=== PATIENT | male | born 1995 | race Caucasian/White ===

== ENCOUNTER → 2023-05-15 07:51 | Outpatient (POV) | payer SELFPAY | PROVIDERS: Visit Provider Dermatology | DX: Z00.00 Encounter for general adult medical examination without abnormal findings (principal) ==

== ENCOUNTER 2025-08-04 08:27 | Outpatient (CLI) | payer BC, SELFPAY ==
--- NOTE | 2025-08-04 08:31 | XR_ITS ---
FINAL REPORT CLINICAL HISTORY: Evaluation of Right Foot Pain..no injury FINDINGS: RIGHT FOOT 3 views of the right foot were obtained. There is no acute fracture or dislocation. There is mild degenerative change of the first MTP joint. Visualized joint spaces are normally aligned. Soft tissues are unremarkable. IMPRESSION: No acute bony abnormality. Reviewed, Interpreted and Dictated by Cara Martinez MD Transcribed by Kellie Gupta Authenticated and . [facility]
--- OUTSIDE RECORDS SUMMARY | 2025-08-04 08:52 | XMS_ITS | Data Portability ---
Author Organization [facility] - [facility] Address [address] [place] [id number] Assessment Encounter Date Assessment Date Assessment LastModified by Organization Details LastModified Time 11/27/2023 11/27/2023 Diagnosis acute bacterial sinusitis and bronchitis Will treat as below. No signs of preseptal or orbital cellulitis, meningismus, or neurologic changes concerning for intracranial process. Instructed family to monitor patient closely and call office for any of these symptoms. Supportive care reviewed: raising HOB, humidifier use, saline nasal spray, rest, encourage PO fluids and monitor hydration status, infection control measures. Recommended acetaminophen/i buprofen PRN pain, fever; reviewed appropriate doses. Follow-up with worsening symptoms or concerns Patient was advised on risk and benefits of the use of oral steriods. Patient is wanting steriods to help with symptoms at this time. Patient was advised that if symptoms worsen at all to seek care [id number] Not available 11/27/2023 08:46:01 Plan of Treatment Reminders Order Date Submit Date Provider Last Modified By Organization Details Last Modified Time Details Appointments None recorded. Lab None recorded. Referral None recorded. Procedures None recorded. Surgeries None recorded. Imaging None recorded. Medication Orders doxycycline hyclate 100 mg capsule 2023 024 [facility], [address], [place], [address], 08:46:09 prednisone 20 mg tablet 2023 024 [facility], [address], [place], [address], 4 08:46:08 Patient TargetsNo targets recorded. Patient InstructionsNo instructions recorded. Reason for Referral None Reported. Medical Equipment None Reported. Allergies Allergen ID Allergen Name Allergen Category Reaction Reaction Severity Criticality Documentation Date Start Date Code Code System Note Provider Name and Address Organization Details Recorded Time [id number] amoxicill in medicatio n Not available Not available Not available 11/27/2023 723 [facility] GEORGES LOPEZS [facility] & [place] 4 08:36:16 Medications Name Sig Start Date Stop Date Status Note LastModified by Organization Details LastModified Time doxycycline hyclate 100 mg capsule TAKE 1 CAPSULE BY MOUTH TWICE DAILY FOR 10 DAYS active Not Available Not Available No t Available ketoconazole 2 % shampoo 1 APPLICATION TOPICALLY EVERY DAY active Not Available Not Available No t Available albuterol sulfate 2.5 mg/3 mL (0.083 %) solution for nebulization USE 1 VIAL IN NEBULIZER THREE TIMES DAILY active Not Available Not Available No t Available prednisone 20 mg tablet TAKE 1 TABLET BY MOUTH EVERY 12 HOURS FOR 5 DAYS active Not Available Not Available N ot Available amlodipine 5 mg tablet TAKE 1 TABLET BY MOUTH ONCE DAILY active Not Available Not Available No t Available sertraline 50 mg tablet TAKE 1 TABLET BY MOUTH ONCE DAILY active Not Available Not Available No t Available clindamycin 1 % lotion 1 APPLICATION TOPICALLY EVERY DAY active Not Available Not Available No t Available escitalopram 20 mg tablet TAKE 1 TABLET BY MOUTH ONCE DAILY active Not Available Not Available No t Available cholecalcife rol (vitamin D3) 50 mcg (2,000 unit) capsule TAKE 1 CAPSULE BY MOUTH ONCE DAILY active Not Available Not Available No t Available Paxlovid 300 mg (150 mg x 2)-100 mg tablets in a dose pack TAKE 3 TABLETS TOGETHER (TWO 150 MG NIRMATRELVI R TABLETS AND ONE 100 MG RITONAVIR TABLET) BY MOUTH TWICE DAILY FOR 5 DAYS. active Not Available Not Available No t Available Vitals Date Recorded Body height Body mass index (BMI) Body weight Body temperature Heart rate Systolic And Diastolic Provider Name and Address Organization Details Last Updated DateTime 4 180.34 cm 41.7 kg/m2 599903. 12 g 97.5 [degF] 78 /min 163/99 mm[Hg] GEORGES QUINTERO [place] - [facility] - [place] & [place] 4 08:35:57 Social History None recorded. Functional Status None recorded. Mental Status None recorded. Family History Nothing Reported. Medical History No medical history recorded. Past Encounters Encounter ID Performer Location Encounter Start Date Encounter Closed Date Diagnosis/Indication Diagnosis SNOMED-CT Code Diagnosis ICD10 Code Diagnosis IMO Codes Diagnosis Note [id number] Angie Tovar APRN [facility] [address] [facility] [id number] 11/27/2023 08:26:36 11/27/2023 08:46:45 Acute bacterial sinusitis 70507822 J01.90 Acute bronchitis 9059354 2 J20.9 Health Concerns Section Related Observation LastModified by Organization Detai ls LastModified Time None Recorded Concern Status LastModified by Organization Details LastModified Time None Recorded Advance Directives Directive None Recorded Payers Insurance Date Sequence Insurance Name Policy Number Policy Rousseau Covered Member ID Rousseau Member ID Guarantor Name 05/10/2024 1 [place] [id number] Devon Summers [id number] Devon Summers Notes Date Note Type Note Provider Name and Address Organization Details Recorded Time 4 text/html Upper Respiratory SymptomsReported by PatientUpper Respiratory SymptomsFor quality, patient reportscongestedanddry cough. For associated symptoms, patient reportsfatigue,sore throat, andheadachebut reportsno chest pain,no sputum production,no shortness of breath,no wheezing,no cyanosis,no change in number of pillows needed to sleep at night,no sweats,no fever,no morning cough,no vomiting,no diarrhea,no rash,no nausea,no chills,no malaise, andno conjunctivitis(sinus pressure pain). For location, patient reportshead,chest,throat,n mariama, andface. For severity, patient reportsno pain. For onset/timing, patient reportssudden. For context, patient reportsno sick contacts,no foreign travel, andnon-smoker. For alleviating factors, patient reportsdecongestant(with no relief). For duration, (symptoms began over 1 week ago).ROS as noted in the HPI Angie Tovar APRN [address], [place], [address], [place] [facility] - [place] & [place] 11/27/2023 08:47:02
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
--- OUTSIDE RECORDS SUMMARY | 2025-08-04 08:52 | XMS_ITS | Clinical Summary ---
Author Organization [facility] Address [address] [place] [id number] Phone [email or web address] Care Team Providers Care Strategy Lead Name Role Phone Provider, No Primary Care Provider Unavailabl e Allergies Active Allergy Reactions Criticality Noted Date Comments Amoxicillin 10/17/2017 Medications lisinopril (ZESTRIL) 20 MG tablet Take 20 mg by mouth 2 (two) times a day. 0 Active levocetirizine (XYZAL) 5 MG tablet Take 5 mg by mouth. Active bacitracin ointment Apply 1 application topically. 1 Active Active Problems Problem Noted Date Diagnosed Date Return to work evaluation 09/06/2021 Encounter for fitness for duty examination 08/26 Social History Tobacco Use Types Packs/Day Years Used Date Smoking Tobacco: Never Smokeless Tobacco: Former Snuff Intimate Partner Violence Answer Date R ecorded Insults You Not on file 02/03/2021 Threatens You Not on file 02/03/2021 Screams at You Not on file 02/03/2021 Physically Hurt Not on file 02/03/2021 Intimate Partner Violence Score Not on file 02/03/2021 Depression Answer Date Recorded PHQ Total Score 0 10/28/2022 Stress Answer Date Recorded Stress in your Life Not on file 08/26/2024 Dealing with Stress 3 08/26/2024 Sex and Gender Information Value Date Recorded Sex Assigned at Not on file Legal Sex Male 1:50 AM CDT Gender Identity Not on file Sexual Orientation Not on file Last Filed Vital Signs Vital Sign Reading Time Taken Comments Blood Pressure 130/77 08/25/2022 3:48 PM EDT Pulse 97 08/25/2022 3:48 PM EDT Temperature 35.7 C (96.2 F) 08/25/2022 3:48 PM EDT Respiratory Rate 18 08/25/2022 3:48 PM EDT Oxygen Saturation 99% 08/25/2022 3:48 PM EDT Inhaled Oxygen Concentration - - Weight - - Height - - Body Mass Index - - Plan of Treatment Health Maintenance Due Date Last Done Comments Dental Cleaning/Exam 1994 HIV Screening 1994 Hepatitis C Screening 1994 HPV Immunization (1 - Male 3-dose series) 2009 Annual Preventive Exam 02/05/2012 Hep B Infection Screening - Triple Screen 02/05/2012 Hepatitis B Immunization (1 of 3 - 19+ 3-dose series) 2013 Covid-19 Immunization (3 - 2024- season) 2025 02/16/2021, 01/14/2021 Influenza Immunization (#1) 06/22/202512/2018, 08/12/2018 Tetanus Diphtheria and Pertussis Immunization (2 - Td or Tdap) 03/23/2030 03/23/2020 HIB Immunization Aged Out No longer e ligible based on patient's age to complete this topic Hepatitis A Immunization Aged Out No longer eligible based on patient's age to complete this topic Pneumococcal Immunization Aged Out No longer eligible based on patient's age to complete this topic Polio Immunization Aged Out No longer eligible based on patient's age to complete this topic Varicella Immunization Aged Out No lo nger eligible based on patient's age to complete this topic Insurance [place] [facility] [id number] [place] [address] Care Teams Strategy Lead Relationship Specialty Start Date End Date Provider, [place] [address] PCP - General Tourist Camp Attendant 08/26/20
--- OUTSIDE RECORDS SUMMARY | 2025-08-04 08:52 | XMS_ITS | Clinical Summary ---
Author Organization [facility] Address [address] [place] [address] Care Team Providers Care Machine Guide Base Winder Name Role Phone Amelia Washington DO Primary Care Provider Allergies Active Allergy Reactions Criticality Noted Date Comments Amoxicillin 10/17/2017 Medications buPROPion SR (WELLBUTRIN SR) 150 MG 12 hr tabletIndication s:Anxiety Take 1 tablet by mouth Every 12 (Twelve) Hours. 60 tablet 5 10/17/2017 Active Active Problems Problem Noted Date Diagnosed Date Family history of thyroid cancer 10/17/2017 Anxiety 10/17/2017 Weight gain 10/17/2017 Other fatigue 10/17/2017 Family History Medical History Relation Name Comments Thyroid disease Maternal Grandfather Thyroid disease Mother Cancer Paternal Uncle Diabetes Paternal Uncle Heart attack Paternal Uncle Relation Name Status Comments Maternal Grandfather Mother Paternal Uncle Social History Tobacco Use Types Packs/Day Years Used Date Smoking Tobacco: Never Smokeless Tobacco: Former PHQ-2 Answer Date Recorded PHQ-2 Score 0 10/06/2018 Abuse Screen Answer Date Recorded Unsafe at Home or Work/School Not on file Feels Threatened by Someone? Not on file 08/2023 Does Anyone Keep You from Co ntacting Others or Doint Things Outside the Home? Not on file 08/01/2023 Physical Sign of Abuse Present Not on file 1 Housing Stability Answer Date Recorded Current Living Arrangements Not on file 07/22 Potentially Unsafe Housing Conditions Not on rahel e 08/01/2023 Family and Community Support Answer Dereck e Recorded Help with Day-to-Day Activities Not on file 08/01/2023 Lonely or Isolated Not on file 08/01/2023 Employment Answer Date Recorded Do you want help finding or keeping work or a carlito b? Not on file 08/01/2023 Disabilities Answer Date Recorded Concentrating, Remembering, or Making Decisions Difficulty Not on file 08/01/2023 Doing Errands Independently Difficulty Not on fi le 08/01/2023 Education Answer Date Recorded Help with school or training? Not on file Preferred Language Not on file 08/01/2023 Sex and Gender Information Value Date Recorded Sex Assigned at Not on file Legal Sex Male 8:17 AM EST Gender Identity Not on file Sexual Orientation Not on file Last Filed Vital Signs Vital Sign Reading Time Taken Comments Blood Pressure 132/88 10/17/2017 10:47 AM EST Pulse 100 10/17/2017 10:47 AM EST Temperature 36.9 C (98.4 F) 10/17/2017 9:59 AM EST Respiratory Rate 20 10/17/2017 9:59 AM EST Oxygen Saturation - - Inhaled Oxygen Concentration - - Weight 129 kg (283 lb 9.6 oz) 10/17/2017 9:59 AM EST Height 180.3 cm (5' 11 ) 10/17/2017 9:59 AM EST Body Mass Index 39.55 10/17/2017 9:59 AM EST Plan of Treatment Health Maintenance Due Date Last Done Comments TDAP/TD VACCINES (1 - Tdap) 2013 ANNUAL PHYSICAL 10/17/2017 HEPATITIS C SCREENING 10/17/2017 INFLUENZA VACCINE 05/22/2025 Pneumococcal Vaccine 0-49 Aged Out No longer eligible based on patient's age to complete this topic Insurance [facility] Care Teams Machine Guide Base Winder Relationship Specialty Start Date End Date Amelia Washington DO [address] [place] [address] PCP - General Family Medicine 10/17/17
== END 2025-08-04 23:59 | disposition home or self-care (01) ==
LOC: RAD 08:29
PROVIDERS: PCP Family Medicine; Visit Provider Podiatrist
DX: M79.671 Pain in right foot (principal)
CPT/HCPCS: 73630